=== PATIENT | male | born 1970 | race Two or more races ===

== ENCOUNTER 2016-10-07 18:11 | Emergency (ER) | payer MEDICAID ==
[~2016-10-07] VITALS: Ht 172.7 cm; Wt 86.2 kg
[2016-10-07] MEDS ORDERED: SODIUM CHLORIDE 0.9% 1,000 ML IV ONE (18:45)
[2016-10-07] MEDS ORDERED: cloNIDine HCL 0.1 MG TAB PO ONE (19:15)
[2016-10-07 19:30] LABS: Chloride 100 mmol/L (98-107); Potassium 3.4 mmol/L (3.5-5.1); Sodium 139 mmol/L (136-145)
[2016-10-07 19:33] LABS: Albumin 4.3 g/dL (3.4-5.0); BUN/Creatinine Ratio 14.7; Blood Urea Nitrogen 15 mg/dL (7-18); Carbon Dioxide 31 mmol/L (21-32); GFR African American 102 mL/min; GFR Non-African American 84 mL/min; Glucose 145 mg/dL (74-106)
[2016-10-07 19:37] LABS: Basophils # (auto) 0 uL; Basophils % (auto) 0.3 % (0.0-2.0); CONDITION Y; Eosinophils # (auto) 0.3 uL; Hematocrit 49.9 % (41.0-53.0); Hemoglobin 16.9 g/dL (13.5-17.5); Lymphocytes # (auto) 2.3 uL; Lymphocytes % (auto) 26.9 % (10.0-50.0); Mean Corpuscular Hemoglobin 29.3 pg (28.0-32.0); Mean Corpuscular Hgb Conc. 33.9 g/dL (32.0-36.0); Mean Corpuscular Volume 86.5 fL (80.0-100.0); Mean Platelet Volume 9.5 fL (7.4-10.4); Monocytes # (auto) 0.7 uL; Monocytes % (auto) 8.2 % (0.0-12.0); Neutrophils # (auto) 5.3 uL; Neutrophils % (auto) 61.6 % (37.0-80.0); Platelet Count (auto) 314 10^3/uL (140-450); Red Cell Distribution Width 12.9 % (11.6-16.0); White Blood Cell 8.7 10^3/uL (4.4-10.8)
[2016-10-07 19:45] LABS: Alkaline Phosphatase 85 U/L (45-117); Aspartate Aminotransferase 24 U/L (15-37); Bilirubin, Total 0.4 mg/dL (0.2-1.0); Total Protein 8.4 g/dL (6.4-8.2)
[2016-10-07 20:42] LABS: Anion Gap 8 (5-15)
[2016-10-07 22:00] VITALS: BP 133/90
[2016-10-07] MEDS ORDERED: SODIUM CHLORIDE 0.9% 2,000 ML IV ONE (22:00)
== END 2016-10-07 22:14 | disposition home or self-care (01) ==
LOC: ER 18:13
DX: I10 Essential (primary) hypertension (principal)
CPT/HCPCS: 36415; 71010; 80053; 84484; 85025; 93005; 96360; 99285; J7030

== ENCOUNTER 2016-10-11 20:41 | Emergency (ER) | payer MEDICAID ==
[~2016-10-11] VITALS: Ht 172.7 cm; Wt 86.2 kg
[2016-10-11 21:01] VITALS: BP 162/92
== END 2016-10-12 00:30 | disposition left against medical advice (07) ==
LOC: ER 20:44
DX: R51 Headache (principal); Z53.21 Procedure and treatment not carried out due to patient leaving prior to being seen by health care provider

== ENCOUNTER 2017-08-31 09:51 | Emergency (ER) | payer MEDICAID ==
[~2017-08-31] VITALS: Ht 170.2 cm; Wt 75.7 kg
[2017-08-31 10:00] VITALS: BP 126/62
[2017-08-31] MEDS ORDERED: KETOROLAC TROMETH 60MG/2ML VIAL IM ONE (10:30)
[2017-08-31] MEDS ORDERED: HYDROcodone-ACET 10/325MG TAB PO ONE (10:30)
== END 2017-08-31 13:11 | disposition home or self-care (01) ==
LOC: ER 09:53
DX: S52.502A Unspecified fracture of the lower end of left radius, initial encounter for closed fracture (principal); S52.602A Unspecified fracture of lower end of left ulna, initial encounter for closed fracture; W18.39XA Other fall on same level, initial encounter; Y93.89 Activity, other specified; Y92.89 Other specified places as the place of occurrence of the external cause; Y99.8 Other external cause status
CPT/HCPCS: 29125; 73110; 96372; 99284; J1885